=== PATIENT | female | born 1960 | race Native Hawaiian/Other Pacific Islander ===

== ENCOUNTER 2019-10-22 14:14 | Emergency (ER) | payer BC ==
[~2019-10-22] VITALS: Ht 167.6 cm; Wt 59.0 kg
[2019-10-22 14:41] VITALS: TEMP 97.9
[2019-10-22 15:17] LABS: PLATELET COUNT 281 K/uL (152-353)
[2019-10-22 15:36] LABS: SODIUM 138 mmol/L (136-145)
[2019-10-22 17:37] VITALS: BP 112/76
== END 2019-10-22 17:38 | disposition home or self-care (01) ==
LOC: ED 14:14
PROVIDERS: Emergency Medicine
DX: J18.9 Pneumonia, unspecified organism (principal); R06.03 Acute respiratory distress; F17.210 Nicotine dependence, cigarettes, uncomplicated
CPT/HCPCS: 80053; 82550; 82553; 83880; 84484; 85027; 85379; 87502; 87651; 93005; 94664; 99283; Q9963

== ENCOUNTER 2019-10-30 13:04 | Outpatient (CLI) | payer BC | END 2019-10-30 19:49 | disposition home or self-care (01) | LOC: LAB 13:04 → US 13:04 | DX: R53.83 Other fatigue (principal); R79.89 Other specified abnormal findings of blood chemistry; E03.9 Hypothyroidism, unspecified; N17.9 Acute kidney failure, unspecified; E78.5 Hyperlipidemia, unspecified; I10 Essential (primary) hypertension; R19.7 Diarrhea, unspecified; K29.70 Gastritis, unspecified, without bleeding | CPT/HCPCS: 82272; 82705; 83630; 87015; 87045; 87324; 87328; 87329; 87449; 87899 ==

== ENCOUNTER 2019-12-01 12:44 | Outpatient (CLI) | payer BC | END 2019-12-01 23:08 | disposition home or self-care (01) | LOC: RAD 12:44 | DX: J18.9 Pneumonia, unspecified organism (principal) ==

== ENCOUNTER 2021-10-11 10:33 | Emergency (ER) | payer BC ==
[~2021-10-11] VITALS: Ht 167.6 cm; Wt 59.0 kg
[2021-10-11 17:35] VITALS: BP 129/87; TEMP 97
== END 2021-10-11 17:35 | disposition home or self-care (01) ==
LOC: ED 10:33
DX: E07.89 Other specified disorders of thyroid (principal)
CPT/HCPCS: 36415; 84439; 84443; 96365; 99284